=== PATIENT | female | born 1940 | race Caucasian/White ===

== ENCOUNTER 2019-11-09 10:22 | Emergency (ER) | payer MEDICARE, SELFPAY ==
[2019-11-09 10:28] VITALS: BP 167/88; PULSE 92; RESP 16; TEMP 36.4; O2SAT 98; BMI 18.8
--- NOTE | 2019-11-09 10:30 | W.ED.FALL ---
HPI - Fall General: Chief Complaint: Fall Stated Complaint: FALL WITH LEFT KNEE PAIN Time Seen by Provider: 11/09/19 10:30 Source: patient Mode of arrival: ambulatory Limitations: no limitations History of Present Illness: HPI Narrative: Patient comes in with injury sustained during a fall earlier this morning. Patient reports left knee pain. Patient does not recall what caused her to fall exactly. Patient appears well. Patient appears in moderate pain. Patient denies any difficulty breathing or chest pain. Patient is alert oriented and responds well to questioning. Review of Systems General: Reports: 10 or more systems reviewed and unremarkable except in HPI and below Musc: Reports: joint pain (left knee) PFS ED PFSH: Social History Smoking and tobacco status: never smoked Physical Exam Const: COMMON NORMALS: no apparent distress and oriented x3 GENERAL APPEARANCE: cooperative HENMT: COMMON NORMALS: normocephalic, external ears normal, EAC's normal, TM's normal bilaterally and external nose normal HEAD & SCALP: normal to inspection and normocephalic FACE & SINUS: facial ecchymosis (right facial cheek) NOSE: external nose normal GENERAL EAR: hearing not grossly impaired EXTERNAL EAR: Yes external ears normal EXTERNAL AUDITORY CANAL: EAC's normal TYMPANIC MEMBRANE: TM's normal bilaterally MOUTH: oral and palatal mucosa normal THROAT: posterior oropharynx normal Eye: COMMON NORMALS: PERRL and EOMs intact bilaterally PUPIL: Yes PERRL Neck/C-Spine: COMMON NORMALS: full ROM and no lymphadenopathy Lymph: LYMPHATIC: no lymphedema noted Chest: COMMONS NORMALS: inspection of chest normal and palpation of chest normal Resp: COMMON NORMALS: normal respiratory effort and clear to auscultation bilaterally AUSCULTATION: clear to auscultation bilaterally Cardio: COMMON NORMALS: regular rate and regular rhythm RATE: regular rate RHYTHM: regular rhythm GI: COMMON NORMALS: normal to inspection, nondistended, normoactive bowel sounds and non-tender : COMMON NORMALS: Yes no CVA tenderness BLADDER/KIDNEY EXAM: Yes no CVA tenderness Back/Pelvis: COMMON NORMALS: no CVA tenderness and thoracic and lumbar spine normal to inspection Extremity: GENERAL: No edema LEFT LOWER EXTREMITY: Yes knee joint Left knee: Yes palpation (painful) and Yes ROM (reduced due to pain) Neuro: COMMON NORMALS: oriented x3, moves all extremities and no focal motor deficits Psych: COMMON NORMALS: mental status grossly normal and cooperative Skin: COMMON NORMALS: no rashes or lesions noted GENERAL SKIN EXAM: no rashes or lesions noted Course ED course: 1140, reviewed with Dr. Coats, recommended orthostatic blood pressures in assessment of patient. wjw [id number], xrays noted no abnormality, pt blood pressure was not orthostatic, patient does have history of recurrent nausea and vomiting. Dr. Coats reviewed with labs and xrays with patient and family with statement of understanding. Vital Signs: Vital signs: Vital Signs Temperature 97.6 F 11/09/19 10:28 Pulse Rate 90 11/09/19 15:35 Respiratory Rate 18 11/09/19 15:35 Blood Pressure 171/77 11/09/19 15:35 Pulse Oximetry 96 11/09/19 15:35 MDM - Fall MDM Narrative: Medical decision making narrative: Patient was brought in today due to concerns of left knee pain. Patient had a reported fall during the late night early interventionist and cannot recall that incident clearly as to what happened except that she fell. 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 Exam notes abdomen soft with some pelvic tenderness. Respirations are even lungs are clear to auscultation. Pupils are equal and reactive. No focal neural deficits are noted. Patient has some mild ecchymosis to the right side of the face. Patient moves extremities well except for left lower extremity. Patient has tenderness to the anterior patellar area of the knee. Range of motion of the hip is noted without crepitus. Palpation of the vertebral spine elicits no pain. Lungs are clear to auscultation. Vital signs are normal except for some elevation in the blood pressure. Differential diagnosis includes CVA, intracranial bleeding, metastasis of cancer, fracture, dislocation, contusion, ACS, electrolyte abnormality, dehydration. Urinalysis had some casts in it, metabolic panel noted a mild decrease in sodium and potassium 135 and 3.4, blood cell count noted a 12 hemoglobin and a white blood cell count of 10.5. Troponin was normal. Lactic acid was mildly elevated at 2.3 but decreased to 1.5 at 2 hours after 1 L of IV fluids. CT scan of the head noted no bleeding. X-rays of the left knee, femur, tib-fib, and pelvis noted no fracture. CT scan of the chest, abdomen, pelvis, and lumbar spine noted a acute transverse fracture of the L1, significant foraminal stenosis, and changes noted to the tumors in the pelvis, but no other significant abnormalities was noted. Orthostatic blood pressures were negative. Patient did have improvement once she got up and moved around but continues to have significant left knee pain. Patient was given medication for pain with some improvement after getting up to a chair. Discussed with family need for patient not to be alone. It was offered for patient to be admitted but the patient refused at this time. Dr. Godinez was consulted and had seen the patient with me. Patient was agreeable to treatment with recommendations for follow-up, or return to ER Lab Data: Labs: Lab Results 11/09/19 11/09/19 11/09/19 Range/Units 11:37 11:37 11:48 WBC 10.5 H (4.0-10.0) 10^3/ uL RBC 4.10 (4.1-5.3) 10^6/u L Hgb 12.1 (11.5-15.3) g/dL Hct 36.1 L (37.0-47.0) % MCV 88.0 (81-99) fL MCH 29.5 (28.0-34.0) pg MCHC 33.5 (30.0-36.0) g/dL RDW 12.7 (12.1-15.1) % Plt Count 374 (130-400) 10^3/c mm MPV 9.5 (7.4-10.4) fL Neut % (Auto) 90.7 % Lymph % (Auto) 3.8 % Gillespie % (Auto) 4.8 % Eos % (Auto) 0.1 % Baso % (Auto) 0.2 % Neut # (Auto) 9.5 H (1.8-7.7) 10^3/u L Lymph # (Auto) 0.4 L (0.8-4.8) 10^3/u L Gillespie # (Auto) 0.5 (0.2-0.9) 10^3/u L Eos # (Auto) 0.0 (0.0-0.8) 10^3/u L Baso # (Auto) 0.0 (0.0-0.1) 10^3/u L Nucleated RBC % (a uto) 0 % Nucleated RBCs # 0.0 /100WBC Sodium (136-145) mmol/L Potassium (3.5-5.1) mmol/L Chloride (98-107) mmol/L Carbon Dioxide (22-29) mmol/L Anion Gap (5-19) BUN (8-23) mg/dL Creatinine (0.5-0.9) mg/dL Glucose (65-115) mg/dL Calculated Osmolal ity (285-295) mOsm/k g Lactic Acid 2.3 H (0.5-2.2) mmol/L Lactic Acid (Sepsi s) (0.5-2.2) mmol/L Calcium (8.5-10.5) mg/dL Magnesium (1.7-2.3) mg/dL Total Bilirubin (0.15-1.2) mg/dL AST (0-32) U/L ALT (0-33) U/L Alkaline Phosphata se (35-105) IU/L Troponin T Baselin e (0-10) ng/mL Total Protein (6.6-8.7) g/dL Albumin (3.5-5.2) g/dL Globulin (1.3-4.6) g/dL TSH (0.27-4.20) uIU/ mL Urine Color Yellow (Yellow) Urine Appearance Clear (CLEAR) Urine pH 7 (5-7) Ur Specific Gravit y 1.015 (1.005-1.030) Urine Protein Neg (Negative) Urine Glucose (UA) Norm (Normal) Urine Ketones Negative (Negative) Urine Blood 2+ H (Negative) Urine Nitrate Negative (Negative) Urine Bilirubin Neg (NEGATIVE) Urine Urobilinogen Norm (Negative) mg/dL Ur Leukocyte Kristina ase Negative (Negative) Urine RBC 5-10 H (0-2) /hpf Urine WBC None (0-5) /hpf Ur Squamous Epith Cells 0-4 H (0-5) Urine Bacteria Trace (NONE) Hyaline Casts 0-4 H Urine Mucus 2+ 11/09/19 11/09/19 11/09/19 Range/Units 12:40 12:40 14:35 WBC (4.0-10.0) 10^3/ uL RBC (4.1-5.3) 10^6/u L Hgb (11.5-15.3) g/dL Hct (37.0-47.0) % MCV (81-99) fL MCH (28.0-34.0) pg MCHC (30.0-36.0) g/dL RDW (12.1-15.1) % Plt Count (130-400) 10^3/c mm MPV (7.4-10.4) fL Neut % (Auto) % Lymph % (Auto) % Gillespie % (Auto) % Eos % (Auto) % Baso % (Auto) % Neut # (Auto) (1.8-7.7) 10^3/u L Lymph # (Auto) (0.8-4.8) 10^3/u L Gillespie # (Auto) (0.2-0.9) 10^3/u L Eos # (Auto) (0.0-0.8) 10^3/u L Baso # (Auto) (0.0-0.1) 10^3/u L Nucleated RBC % (a uto) % Nucleated RBCs # /100WBC Sodium 135 L (136-145) mmol/L Potassium 3.4 L (3.5-5.1) mmol/L Chloride 96 L (98-107) mmol/L Carbon Dioxide 24 (22-29) mmol/L Anion Gap 19.4 H (5-19) BUN 9 (8-23) mg/dL Creatinine 0.5 (0.5-0.9) mg/dL Glucose 119 H (65-115) mg/dL Calculated Osmolal ity 277 L (285-295) mOsm/k g Lactic Acid (0.5-2.2) mmol/L Lactic Acid (Sepsi s) 1.5 (0.5-2.2) mmol/L Calcium 10.3 (8.5-10.5) mg/dL Magnesium 2.1 (1.7-2.3) mg/dL Total Bilirubin 0.7 (0.15-1.2) mg/dL AST 26 (0-32) U/L ALT 16 (0-33) U/L Alkaline Phosphata se 114 H (35-105) IU/L Troponin T Baselin e 9 (0-10) ng/mL Total Protein 7.2 (6.6-8.7) g/dL Albumin 4.2 (3.5-5.2) g/dL Globulin 3.0 (1.3-4.6) g/dL TSH 2.91 (0.27-4.20) uIU/ mL Urine Color (Yellow) Urine Appearance (CLEAR) Urine pH (5-7) Ur Specific Gravit y (1.005-1.030) Urine Protein (Negative) Urine Glucose (UA) (Normal) Urine Ketones (Negative) Urine Blood (Negative) Urine Nitrate (Negative) Urine Bilirubin (NEGATIVE) Urine Urobilinogen (Negative) mg/dL Ur Leukocyte Kristina ase (Negative) Urine RBC (0-2) /hpf Urine WBC (0-5) /hpf Ur Squamous Epith Cells (0-5) Urine Bacteria (NONE) Hyaline Casts Urine Mucus EKG Data^: EKG 1: Attestation: I personally reviewed and interpreted this EKG as follows: (1048, SR rate 98 and regular, no ectopy, no ST elevation, artifact noted) EKG 2: Attestation: I personally reviewed and interpreted this EKG as follows: (1229, SR rate 89 regular, no ectopy, no ST elevation, no change from 2 hours ago.) Discharge Plan Discharge Patient Disposition: Home, Self-Care Clinical Impression: Dehydration, mild Closed fracture of transverse process of lumbar vertebra Qualifiers: Encounter type: initial encounter Qualified Code(s): S32.009A - Unspecified fracture of unspecified lumbar vertebra, initial encounter for closed fracture Injury of knee, left Qualifiers: Encounter type: initial encounter Qualified Code(s): S89.92XA - Unspecified injury of left lower leg, initial encounter Condition: Stable Prescriptions: New hydrocodone-acetaminophen 5-325 mg tablet 1 tab PO Q6H PRN (Reason: pain) Qty: 10 RF: 0 No Action quetiapine 25 mg tablet 25 mg PO BEDTIME RF: 0 alprazolam 0.5 mg tablet See Rx Instructions .ROUTE .COMPLEX RF: 0 Discharge Orders: Discharge Order (Routine); Ordered 11/09/19 Ordered By: Lele Cameron Referrals: Bartolo Cuevas DO [Primary Care Provider] - Discharge Diet: Usual diet Discharge Activity: Use walker/crutches as instructed Patient Instructions: Knee Pain (ED) Activity Restrictions/Additional Instructions: Acetaminophen and ibuprofen to control pain Use hydrocodone for breakthrough pain Increase activity as tolerated Patient should not be alone for the next three days Follow-up with primary care in three days Return to ER for worsening pain, or high fever Coding Level of Care Code ED Client Resolution Specialist for Keith Fwd Exam Comprehensive
[2019-11-09 10:36] VITALS: O2SAT 96
--- NOTE | 2019-11-09 10:36 | XR_ITS ---
WS: [id number] XR knee LT 3V* [id number] REASON FOR EXAM: fall, injury FINDINGS: Total knee replacement is identified the prosthesis hardware is in good alignment. There is no definite fractures of the bony structures of a seen. XR/XR knee LT 3V* [id number] IMPRESSION: Total knee replacement satisfactory alignment.
--- NOTE | 2019-11-09 10:36 | CTR_ITS ---
PROCEDURE INFORMATION: Exam: CT Head Without Contrast Exam date and time: 11/09/2019 10:40 AM Age: 79 years old Clinical indication: Injury or trauma; Fall TECHNIQUE: Imaging protocol: Computed tomography of the head without contrast. Total DLP: 1848.93 mGy-cm Radiation optimization: All CT scans at this facility use at least one of these dose optimization techniques: automated exposure control; mA and/or kV adjustment per patient size (includes targeted exams where dose is matched to clinical indication); or iterative reconstruction. COMPARISON: MR head wo con* [id number] 02/21/2017 11:54 AM FINDINGS: Brain: There is decreased attenuation in region of posterior limbs of internal capsules and lower valente and pontomedullary junction along course of cortical spinal tracts consistent with gliosis and could be due to motor neuron disease and present on prior MRI. There is no acute intracranial hemorrhage. There is lucency in the cerebral white matter, likely microvascular disease although non-specific. white differentiation is intact. There are no extra-axial fluid collections. No evidence of mass. There is no mass effect or midline shift. Ventricles: The ventricles and sulci are enlarged, consistent with volume loss / atrophy. No hydrocephalus. Bones/joints: No acute fracture. Sinuses: Minimal scattered mucosal thickening versus small retention cysts or polyps. Minimal secretions in a right posterior ethmoid air cell. Mastoid air cells: No significant mastoid effusion. Soft tissues: Unremarkable as visualized. Vasculature: There is vascular calcification. CT/CT head wo con* [id number] IMPRESSION: 1. No evidence of acute intracranial abnormality. No evidence of acute infarction, hemorrhage, or mass. 2. Atrophy and microvascular disease. Radiation Dose CTDIVOL = (mGy): DLP = 1848.93 (mGy-cm)
--- NOTE | 2019-11-09 10:36 | ECG_ITS ---
Measurements Intervals [place] Rate: 92 P: 72 RI: 172 QRS: 75 QRSD: 86 T: 64 QT: 389 QTc: 481 SINUS RHYTHM VOLTAGE CRITERIA FOR LVH [MEETS CRITERIA IN ONE OF: R(aVL), S(V1), R(V5), R(V5 (V5/V6)+S(V1)] MODERATE ST DEPRESSION [0.05+ mV ST DEPRESSION] Compared to ECG 10/05/2016 13:48:28 Left ventricular hypertrophy now present ST (T wave) deviation now present Electronically Signed On 11-09-2019 19:50:38 CDT by Faby Perkins M.D. [id number] f
--- NOTE | 2019-11-09 10:36 | XR_ITS ---
WS: [id number] XR pelvis 1-2V* [id number] REASON FOR EXAM: fall FINDINGS: The ilium, ischium, and pubis are normal. The sacroiliac joints are normal. Both hip joints show no definite fractures. XR/XR pelvis 1-2V* [id number] IMPRESSION: Negative pelvis.
[2019-11-09 11:44] LABS: Basophils % 0.2 %; Eosinophils % 0.1 %; Hematocrit 36.1 % (37.0-47.0); Hemoglobin 12.1 g/dL (11.5-15.3); Lymphocytes # 0.4 10^3/uL (0.8-4.8); Lymphocytes % 3.8 %; Mean Corpuscular HGB Conc 33.5 g/dL (30.0-36.0); Mean Corpuscular Hemoglobin 29.5 pg (28.0-34.0); Mean Platelet Volume 9.5 fL (7.4-10.4); Monocytes # 0.5 10^3/uL (0.2-0.9); Monocytes % 4.8 %; Neutrophils # 9.5 10^3/uL (1.8-7.7); Neutrophils % 90.7 %; Nucleated Red Blood Cells % 0 %; Platelet Count 374 10^3/cmm (130-400); Red Cell Distribution Width 12.7 % (12.1-15.1); White Blood Count 10.5 10^3/uL (4.0-10.0)
[2019-11-09 12:01] LABS: Lactic Sepsis W/Reflex 2.3 mmol/L (0.5-2.2)
--- NOTE | 2019-11-09 12:03 | CTR_ITS ---
PROCEDURE INFORMATION: Exam: CT Chest With Contrast Exam date and time: 11/09/2019 12:10 PM Age: 79 years old Clinical indication: Injury or trauma; Initial encounter; Generalized; Blunt trauma (contusions or hematomas); Prior surgery; Surgery date: 6+ months; Surgery type: Gb, appy, hyst; Patient HX: Backwards fall from standing - known abd mass; Additional info: Carcinoma, emesis TECHNIQUE: Imaging protocol: Computed tomography of the chest with intravenous contrast. Total DLP: 899.56 mGy-cm Radiation optimization: All CT scans at this facility use at least one of these dose optimization techniques: automated exposure control; mA and/or kV adjustment per patient size (includes targeted exams where dose is matched to clinical indication); or iterative reconstruction. Contrast material: Omnipaque 300; Contrast volume: 75 ml; Contrast route: IV; COMPARISON: CT abdomen pelvis w con* [id number] 01/29/2019 10:23 AM FINDINGS: Thyroid: The bilateral thyroid lobes are unremarkable. Lungs: Inferior segment lingular pulmonary subsegmental atelectasis. Pleural space: No pneumothorax identified. No pleural effusion demonstrated. Heart: Atherosclerotic coronary calcifications are noted involving the LAD and LCx coronary arteries. Mediastinum: No mediastinal hematoma identified. A small sliding hiatal hernia is present above the level of the diaphragm. Aorta: There is no evidence of aortic pseudoaneurysm or traumatic dissection. Mild aortic arch and descending thoracic aortic atherosclerotic calcification without ectasia. Lymph nodes: No enlarged lymph nodes. Bones/joints: No displaced rib fracture demonstrated. Healed posterolateral right 6th rib fracture. Healed left posterior 9th and 10th rib fractures. Thoracic spine vertebral body marginal osteophytes are noted at multiple levels. Healed anterolateral left 5th, 8th and 9th rib fractures. Diffuse osteopenia. Degenerative disk disease is present at mid-thoracic spine disk levels. Mild rightward upper thoracic spinal curvature. Soft tissues: Unremarkable. IMPRESSION: 1. Coronary atherosclerosis. 2. Small hiatal hernia. 3. No acute injury identified. 4. Please see the abdomen/pelvis CT report of the same date for additional findings. PROCEDURE INFORMATION: Exam: CT Abdomen And Pelvis With Contrast Exam date and time: 11/09/2019 12:10 PM Age: 79 years old Clinical indication: Injury or trauma; Initial encounter; Generalized; Blunt trauma (contusions or hematomas); Prior surgery; Surgery date: 6+ months; Surgery type: Gb, appy, hyst; Patient HX: Backwards fall from standing - known abd mass; Additional info: Carcinoma, emesis TECHNIQUE: Imaging protocol: Computed tomography of the abdomen and pelvis with intravenous contrast. Total DLP: 899.56 mGy-cm Radiation optimization: All CT scans at this facility use at least one of these dose optimization techniques: automated exposure control; mA and/or kV adjustment per patient size (includes targeted exams where dose is matched to clinical indication); or iterative reconstruction. Contrast material: Omnipaque 300; Contrast volume: 75 ml; Contrast route: IV; COMPARISON: CT abdomen pelvis w con* [id number] 01/29/2019 10:23 AM FINDINGS: Liver: Moderate central intrahepatic biliary ductal dilatation. Gallbladder and bile ducts: The gallbladder is surgically absent, with metallic clips in the gallbladder fossa. The extrahepatic bile ducts are dilated, measuring 11 mm. No ductal calculus. Pancreas: The pancreas is normal. No pancreatic mass or ductal dilatation identified. Spleen: The spleen demonstrates a few small granulomatous calcifications. Adrenals: Normal. No mass. Kidneys and ureters: Normal. No hydronephrosis. Stomach and bowel: Unremarkable. No obstruction. No mucosal thickening. Appendix: No evidence of appendicitis. Intraperitoneal space: Unremarkable. No free air. No significant fluid collection. Vasculature: Moderate aortic atherosclerotic calcification without aneurysm. The iliac arteries show moderate bilateral atherosclerotic calcifications without evidence of aneurysm. Lymph nodes: No enlarged lymph nodes. Bladder: Unremarkable as visualized. Reproductive: The uterus is status post hysterectomy. Centrally necrotic solid right adnexal mass measuring 13.6 x 10.2 x 10.3 cm. Solid bilobed left adnexal mass contiguous with (versus continuous with) this measuring 6.1 x 6.5 x 6.8 cm. Likely separate prominent left ovary measuring 3.6 x 2.9 x 3.0 cm, containing a crenulated 2.1 cm cystic space. Bones/joints: Diffuse osteopenia. No pelvic or sacral fracture identified. No acute lumbar spine fracture identified. Bilateral lower lumbar facet primary osteoarthritis. L4-L5 degenerative disc disease. Grade 1 L4-5 degenerative type anterolisthesis. Soft tissues: Unremarkable. CT/CT chest abd pel w con* IMPRESSION: 1. Prior hysterectomy. 2. Bilateral adnexal masses. Neoplasia not excluded. 3. Post cholecystectomy with extrahepatic biliary ductal dilatation. No ductal calculus identified. 4. No acute injury identified. 5. Please see the CT chest report of the same date for additional findings. Radiation Dose CTDIVOL = (mGy): DLP = 899.56~899.56 (mGy-cm)
[2019-11-09 12:18] LABS: Add Urine Microscopic? YES; Bilirubin Urine Neg (NEGATIVE); Blood Urine 2+ (Negative); Glucose Urine UA Norm (Normal); Ketones Urine Negative (Negative); Leukocyte Esterase Urine Negative (Negative); Nitrate Urine Negative (Negative); Protein Urine Neg (Negative); Specific Gravity, Urine 1.015 (1.005-1.030); Urine Appearance Clear (CLEAR); Urine Color Yellow (Yellow); Urobilinogen Urine Norm (Negative); pH Urine 7 (5-7)
[2019-11-09 12:27] LABS: Add Urine Culture? No; Bacteria Urine TRACE; Hyaline Casts Urine 0-4; Mucus Urine 2+; Squamous Epithelial Cell Urine 0-4 (0-5)
--- NOTE | 2019-11-09 12:36 | ECG_ITS ---
Measurements Intervals [place] Rate: 89 P: 95 OH: 161 QRS: 85 QRSD: 83 T: 85 QT: 399 QTc: 487 SINUS RHYTHM VOLTAGE CRITERIA FOR LVH [MEETS CRITERIA IN ONE OF: R(aVL), S(V1), R(V5), R(V (V5/V6)+S(V1)] Compared to ECG 10/05/2016 13:48:28 Left ventricular hypertrophy now present Electronically Signed On 11-09-2019 19:51:52 CDT by Faby Perkins M.D. [id number] f
[2019-11-09] MEDS: ondansetron 2 mg/ML SDV 2 mL 4 MG IVP (12:40)
[2019-11-09] MEDS: morphine 4 mg/mL SDV 1 mL 2 MG IVP ×2 (12:41→14:46)
[2019-11-09] MEDS: sodium chloride 0.9% 1,000 ML 999 ML IV (12:41)
[2019-11-09] MEDS: sodium chloride 0.9% 500 ML 999 ML IV (12:41)
--- NOTE | 2019-11-09 12:41 | XR_ITS ---
WS: [id number] XR tibia fibula LT 2V [id number] REASON FOR EXAM: pain, fall FINDINGS: Tibia fibula shafts were normal with no fractures. Total knee replacement is seen in satisf actory position. At the ankle there is mild widening of the ankle mortise suggesting instability. XR/XR tibia fibula LT 2V [id number] IMPRESSION: Total knee replacement satisfactory a knee The tibia and fibula show no definite fractures widening ankle mortise suggesti ng grade 2 sprain.
--- NOTE | 2019-11-09 12:41 | USR_ITS ---
PROCEDURE INFORMATION: Exam: US Duplex Left Lower Extremity Veins, Limited Exam date and time: 11/09/2019 1:49 PM Age: 79 years old Clinical indication: Pain; Leg, lower; Left; Additional info: Leg pain, swelling, cancer TECHNIQUE: Imaging protocol: Real-time Duplex ultrasound of the Left Lower Extremity with 2-D temple scale, color Doppler flow and spectral waveform analysis with image documentation. Limited exam focused on the left lower extremity veins. COMPARISON: No relevant prior studies available. FINDINGS: Left deep veins: Unremarkable. The common femoral, femoral, proximal profunda femoral and popliteal veins are patent without thrombus. Normal Doppler waveforms. Normal compressibility and/or augmentation response. Left superficial veins: Unremarkable. Saphenofemoral junction is patent without thrombus. Soft tissues: Unremarkable. US/CV venous duplex [facility] [id number] IMPRESSION: No acute findings. No evidence of deep vein thrombosis.
--- NOTE | 2019-11-09 12:41 | XR_ITS ---
WS: [id number] XR femur LT min 2V* [id number] REASON FOR EXAM: fall FINDINGS: The femur distally shows a prosthesis from total knee replacement. No fractures are noted t hroughout the femoral shaft. Line normal alignment. XR/XR femur LT min 2V* [id number] IMPRESSION: Total knee replacement satisfactory. Femurs negative.
[2019-11-09 13:11] LABS: Troponin(5th) Baseline 9 ng/mL (0-10)
[2019-11-09 13:27] LABS: Reflex Lactate Order REFLEX LACTIC ORDERD
[2019-11-09 13:42] LABS: Alanine Aminotransferase 16 U/L (0-33); Aspartate Amino Transferase 26 U/L (0-32); Blood Urea Nitrogen 9 mg/dL (8-23); Calcium 10.3 mg/dL (8.5-10.5); Carbon Dioxide 24 mmol/L (22-29); Creatinine Clr Calc Pharmacy 46.7305; Glucose 119 mg/dL (65-115); Magnesium 2.1 mg/dL (1.7-2.3); Thyroid Stimulating Hormone 2.91 uIU/mL (0.27-4.20); Total Bilirubin 0.7 mg/dL (0.15-1.2); Total Protein 7.2 g/dL (6.6-8.7)
--- NOTE | 2019-11-09 13:44 | CTR_ITS ---
PROCEDURE INFORMATION: Exam: CT Lumbar Spine Without Contrast Exam date and time: 11/09/2019 1:49 PM Age: 79 years old Clinical indication: Injury or trauma; Initial encounter; Blunt trauma (contusions or hematomas); Prior surgery; Surgery date: 6+ months; Surgery type: Gb, appy, hyst; Patient HX: Backwards fall from standing; Additional info: Fall, pain TECHNIQUE: Imaging protocol: Computed tomography images of the lumbar spine without contrast. Total DLP: 984.04 mGy-cm Radiation optimization: All CT scans at this facility use at least one of these dose optimization techniques: automated exposure control; mA and/or kV adjustment per patient size (includes targeted exams where dose is matched to clinical indication); or iterative reconstruction. COMPARISON: CT abdomen pelvis w con* [id number] 01/29/2019 10:23:52 AM FINDINGS: Vertebrae: There is acute nondisplaced right L1 transverse process fracture. There are more focal rounded lucencies in T12 and L1 which are stable and likely hemangiomas. Discs/Spinal canal/Neural foramina: There are degenerative changes with lumbar disc bulging, thickening of ligamentum flavum, and facet degenerative changes. There is stable grade 1/2 degenerative anterior listhesis at L4-L5. This causes asymmetric prominent right neural foraminal narrowing. There is [id number] spinal stenosis at L5-S1. There is severe spinal stenosis and subarticular recesses narrowing at L4-L5. There is mild spinal stenosis at L2-L3 and L3-L4. Degenerative changes are not significantly changed. Other bones/joints: Bones are diffusely demineralized. Intraperitoneal space: There is large partially visualized pelvic mass and please see report of abdominal CT. There are surgical clips in the right side of the pelvis. Vasculature: Aorta shows atherosclerotic change. Soft tissues: See above. CT/CT lumbar spine wo con* [id number] IMPRESSION: 1. Acute nondisplaced right L1 transverse process fracture. 2. Stable degenerative changes greatest at L4-L5 with severe right neural foraminal narrowing, severe spinal stenosis, and grade 1/2 degenerative anterior listhesis. Radiation Dose CTDIVOL = (mGy): DLP = 984.04 (mGy-cm)
[2019-11-09] MEDS: iohexol 300 mg/mL 100 mL Btl IV (13:59)
[2019-11-09 14:11] LABS: Albumin Level 4.2 g/dL (3.5-5.2); Alkaline Phosphatase 114 IU/L (35-105); Anion Gap 19.4 (5-19); Chloride 96 mmol/L (98-107); Osmolality Calculated 277 mOsm/kg (285-295); Potassium 3.4 mmol/L (3.5-5.1); Sodium 135 mmol/L (136-145)
[2019-11-09 14:46] VITALS: RESP 16; O2SAT 94
[2019-11-09] MEDS: ketorolac 30 mg/mL INJ 15 MG IVP (14:46)
[2019-11-09 14:51] LABS: Lactic Acid level (Lactate) 1.5 mmol/L (0.5-2.2)
[2019-11-09 15:35] VITALS: BP 167/86; BP 171/77; BP 171/80; PULSE 90; RESP 18; O2SAT 96
[2019-11-09 16:47] VITALS: BP 123/86; PULSE 84; RESP 17; O2SAT 98
== END 2019-11-09 16:48 | disposition home or self-care (01) ==
PROVIDERS: Emergency Provider Nurse Practitioner Family; Family Provider Internal Medicine; PCP Internal Medicine
DX: S32.019A Unspecified fracture of first lumbar vertebra, initial encounter for closed fracture (principal); S89.92XA Unspecified injury of left lower leg, initial encounter; W19.XXXA Unspecified fall, initial encounter; M79.89 Other specified soft tissue disorders
CPT/HCPCS: 12345; 36415; 70450; 71260; 72131; 72170; 73552; 73562; 73590; 74177; 80053; 81001; 83605; 83735; 84443; 84484; 85025; 93005; 93971; 96361; 96374; 96375; 96376; 99284; J1885; J2270; J2405; J7030; J7040; Q9967

== ENCOUNTER 2020-09-08 13:53 | Emergency (ER) | payer MEDICARE, SELFPAY ==
[2020-09-08] VITALS (9 sets, daily range): BP systolic 141–194; BP diastolic 77–99; PULSE 77–99; RESP 16–18; TEMP 36.9; O2SAT 92–100; BMI 16.2
--- NOTE | 2020-09-08 15:22 | CTR_ITS ---
PROCEDURE INFORMATION: Exam: CT Abdomen And Pelvis With Contrast Exam date and time: 09/08/2020 4:09 PM Age: 80 years old Clinical indication: Nausea and vomiting; Abdominal pain; Prior surgery; Surgery type: Hyst, tumor removal; Additional info: Abd tumor and vomiting. Obstruction? TECHNIQUE: Imaging protocol: Computed tomography of the abdomen and pelvis with intravenous contrast. Radiation optimization: All CT scans at this facility use at least one of these dose optimization techniques: automated exposure control; mA and/or kV adjustment per patient size (includes targeted exams where dose is matched to clinical indication); or iterative reconstruction. Contrast material: OMNI 300; Contrast volume: 75 ml; Contrast route: INTRAVENOUS (IV); COMPARISON: 1. CT chest abd pel w con* 11/09/2019 2:[address] abdomen pelvis w con* [id number] 01/29/2019 10:23:[address] abdomen pelvis w con* [id number] 05/23/2018 2:07:[address] abdomen pelvis w con* [id number] 11/06/2018 12:37:31 PM RADIATION DOSE METRICS: Total DLP (mGy-cm): 184.68 FINDINGS: Liver: There is no focal abnormality within the liver. Gallbladder and bile ducts: There has been a cholecystectomy. Dilatation the central bile ducts within the liver in the common bile duct is not significantly changed from prior examinations and is not unusual in a patient post cholecystectomy. Pancreas: The pancreas is normal. Spleen: The spleen demonstrates punctate calcifications, consistent with remote granulomatous organism exposure. Adrenal glands: The adrenal glands are normal. Kidneys and ureters: There is moderate hydronephrosis. There is moderate hydroureter. Stomach and bowel: There is mild dilatation of proximal small bowel loops. Distal small bowel appears less dilated and contains less contrast however the bowel in general is difficult to evaluate on this examination due to the very large masses which displaced bowel loops from the pelvis. There is midline ventral hernia containing a loop of bowel. This potentially represents point of obstruction it appears represent a transition point between dilated and nondilated bowel. Correlation with physical examination findings is suggested. There is a large amount of feces throughout the colon which may represent constipation or fecal impaction. Appendix: Not identified Not identified Intraperitoneal space: There are 3 large abdominal and pelvic masses, larger than on previous examinations. The largest on the right side of the abdomen measures approximately 11 x 13 x 14 cm and is centrally necrotic. To the left of this there is a 9 x 9 by 10.5 cm mass with decreased enhancement centrally suggesting central necrosis and on the left side is a centrally necrotic 6 cm diameter mass. Vasculature: Unremarkable. No abdominal aortic aneurysm. Lymph nodes: Unremarkable. No enlarged lymph nodes. Urinary bladder: Unremarkable as visualized. Reproductive: There has been a hysterectomy. Bones/joints: Unremarkable. No acute fracture. Soft tissues: Unremarkable. CT/CT abdomen pelvis w con* [id number] IMPRESSION: 1. Possible small bowel obstruction. 2. Ventral hernia containing a loop of bowel. This is worrisome as the cause for small bowel obstruction. 3. There is been considerable growth in the abdominal tumor masses compared with 11/07/2019. 4. Findings suggesting constipation. Radiation Dose CTDIVOL = (mGy): DLP = 184.68 (mGy-cm)
--- NOTE | 2020-09-08 15:25 | W.ED.NAVMDI ---
HPI - Nausea/Vomiting/Diarrhea General: Chief complaint: Nausea/Vomiting/Diarrhea Stated complaint: Vomiting for 2 days, abdominal pains,unable to eat Time Seen by Provider: 09/08/20 15:12 History of Present Illness: HPI Narrative: The patient is an 80-year-old female with a past medical history of gastrointestinal stromal tumor / GIST. She comes to the ER today complaining of nausea and vomiting for the past 2 to 3 days. She has been unable to eat or drink anything during that time her daughter says she will swallow it and then it will come back up. Patient reports she did pass a small bowel movement this morning but has not passed any gas. The patient does have dementia and the daughter offers most of her history. Denies diarrhea. Has visible abdomen mass. A few years ago the GIST tumor has been treated with Gleevec and the tumor shrank however it is clearly back now and visible. They were told she may not be suitable for this anymore due to her chronic memory loss and dementia. MD elicited complaint: nausea and vomiting Description of vomiting: food contents Associated nausea: Yes Associated abdominal pain: No Pain consistency: colicky Quality: cramping Exacerbating factors: eating and vomiting Relieving factors: none Associated symtoms: Reports no associated symptoms and nausea; Denies anxiety, change in vision, chest pain, dizziness, fatigue, headache(s) or palpitations Review of Systems General: Reports: 10 or more systems reviewed and unremarkable except in HPI and below Const: Denies: fatigue Eyes: Denies: change in vision, blurry vision or eye redness ENMT: Denies: throat pain, swelling of lips/tongue, ear or mastoid pain or nasal congestion Card: Denies: chest pain, palpitations, irregular heart rhythm, edema, dyspnea on exertion or orthopnea Resp: Denies: dyspnea, productive cough or non-productive cough GI: Reports: nausea and vomiting; Denies: abdominal pain : Denies: flank pain, difficulty voiding, urinary frequency or urinary urgency Musc: Denies: neck pain, back pain, extremity pain, joint pain, joint redness, limited range of motion or muscle weakness Skin/Breast: Denies: rash, pruritus, erythema, skin pain or skin tenderness Neuro: Denies: headache(s), numbness in extremities, weakness in extremities, sensory changes, difficulty walking, dizziness, confusion or Slurred speech present Psych: Denies: anxiety or depression Endo: Denies: polyuria All/Imm: Denies: urticaria, throat swelling or tongue swelling PFSH ED PFSH: Social History Smoking and tobacco status: never smoked Physical Exam Const: COMMON NORMALS: no acute distress, average body habitus, patient oriented x3, no limitations, healthy appearing, alert and well nourished GENERAL APPEARANCE: cooperative, comfortable, well kempt and well developed ORIENTATION/CONSCIOUSNESS: Yes awake, Yes oriented to person, Yes oriented to place and Yes oriented to time HENMT: COMMON NORMALS: normocephalic, external ears normal and Normal external nose present HEAD & SCALP: normal to inspection and normocephalic NOSE: Normal external nose present EXTERNAL EAR: Yes external ears normal MOUTH: Normal oral and palatal mucosa present THROAT: posterior oropharynx normal Eye: COMMON NORMALS: Equal, round and reactive pupils present and EOMs intact bilaterally GENERAL EYE: appearance normal, both eyes and all related structures PUPIL: Yes Equal, round and reactive pupils present Neck/C-Spine: COMMON NORMALS: full ROM, no lymphadenopathy, no meningeal signs and no JVD GENERAL: Yes normal visual inspection Lymph: LYMPHATIC: no lymphadenopathy noted Chest: COMMONS NORMALS: normal inspection of the chest and normal palpation of entire chest wall Resp: COMMON NORMALS: normal respiratory effort, No retractions, No use of accessory muscles, clear to auscultation bilaterally and percussion normal EFFORT & INSPECTION: Yes able to speak in complete sentences AUSCULTATION: clear to auscultation bilaterally PERCUSSION: percussion normal Cardio: COMMON NORMALS: no JVD, regular rate, regular rhythm, S1 normal heart sound present, S2 normal heart sound present and Peripheral pulses 2+ throughout RATE: regular rate RHYTHM: regular rhythm HEART SOUNDS: S1 normal heart sound present and S2 normal heart sound present PERIPHERAL PULSES: Peripheral pulses 2+ throughout GI: INSPECTION: Yes abdominal distension and Yes other (Obvious tumor visible to Right lower abdomen. Firm to palpation. Not tender) AUSCULTATION: Yes normoactive bowel sounds PALPATION: Yes Firmness to palpation present (GI) GI image (female): 1. tumor present : COMMON NORMALS: Yes no CVA tenderness BLADDER/KIDNEY EXAM: Yes no CVA tenderness Back/Pelvis: COMMON NORMALS: no CVA tenderness, thoracic and lumbar spine normal to inspection, no thoracic nor lumbar tenderness and thoraco-lumbar ROM normal Extremity: COMMON NORMALS: normal to inspection, full ROM, capillary refill normal, no joint enlargement and no pedal edema GENERAL: Yes normal exam except as noted Neuro: COMMON NORMALS: patient oriented x3, CN's II-XII intact bilaterally, moves all extremities, no focal motor deficits, no sensory deficits noted and gait normal SENSORIUM/ORIENTATION: Yes alert, Yes oriented to person, Yes oriented to place and Yes oriented to time MENINGEAL SIGNS: Yes no meningeal signs Psych: COMMON NORMALS: mental status grossly normal, Normal thought process present, cooperative, normal affect and speech normal APPEARANCE: Yes well kempt ATTITUDE: Yes calm SPEECH: Yes normal speech THOUGHT PROCESS: Normal thought process present Skin: COMMON NORMALS: no rashes or lesions noted GENERAL SKIN EXAM: no rashes or lesions noted Course Vital Signs: Vital signs: Vital Signs Temperature 98.4 F 09/08/20 14:06 Pulse Rate 82 09/08/20 23:01 Respiratory Rate 18 09/08/20 18:00 Blood Pressure 191/77 09/08/20 23:01 Pulse Oximetry 95 09/08/20 23:01 MDM - Nausea/Vomiting/Diarrhea MDM Narrative: Medical decision making narrative: The patient came with nausea and vomiting for the past 2 days and inability to tolerate oral fluids without vomiting them. CT showed multiple masses in her belly that have greatly grown since last year. It also showed a ventral hernia. I reduced this myself with ease after it was found on CT and is unlikely the cause of her constipation. CT did not commit but said most likely it is a small bowel obstruction. The likely cause of this is probably the mass-effect from the 3 large masses in her abdomen. I initially admitted her to this hospital however Dr. Villatoro took a look at the CT and recommended a larger facility with surgical oncology as she possibly needs debulking. Discussed with the patient and recommended transfer. [facility] who does not have a debulking surgeon. [facility] Dr. Strickland is a hospitalist who accepts her care. The patient is stable for transfer. Lab Data: Labs: Lab Results 09/08/20 09/08/20 09/08/20 Range/Units 15:55 15:55 17:40 WBC 8.7 (4.0-10.0) 10^3/ uL RBC 4.31 (4.1-5.3) 10^6/u L Hgb 13.1 (11.5-15.3) g/dL Hct 39.7 (37.0-47.0) % MCV 92.1 (81-99) fL MCH 30.4 (28.0-34.0) pg MCHC 33.0 (30.0-36.0) g/dL RDW 13.2 (12.1-15.1) % Plt Count 342 (130-400) 10^3/c mm MPV 8.8 (7.4-10.4) fL Neut % (Auto) 81.2 % Lymph % (Auto) 8.8 % [place] % (Auto) 9.4 % Eos % (Auto) 0.0 % Baso % (Auto) 0.3 % Neut # (Auto) 7.08 (1.8-7.7) 10^3/u L Lymph # (Auto) 0.8 (0.8-4.8) 10^3/u L [place] # (Auto) 0.8 (0.2-0.9) 10^3/u L Eos # (Auto) 0.0 (0.0-0.8) 10^3/u L Baso # (Auto) 0.0 (0.0-0.1) 10^3/u L Nucleated RBC % (a uto) 0 % Nucleated RBCs # 0.0 /100WBC Sodium 135 L (136-145) mmol/L Potassium 3.9 (3.5-5.1) mmol/L Chloride 95 L (98-107) mmol/L Carbon Dioxide 29 (22-29) mmol/L Anion Gap 14.9 (5-19) BUN 8 (8-23) mg/dL Creatinine 0.4 L (0.5-0.9) mg/dL GFR Calculation Not Reportable Glucose 107 (65-115) mg/dL Calculated Osmolal ity 279 L (285-295) mOsm/k g Lactate (0.5-2.2) mmol/L Calcium 10.1 (8.5-10.5) mg/dL Total Bilirubin 0.5 (0.15-1.2) mg/dL AST 22 (0-32) U/L ALT 16 (0-33) U/L Alkaline Phosphata se 127 H (35-105) IU/L Total Protein 7.2 (6.6-8.7) g/dL Albumin 4.2 (3.5-5.2) g/dL Globulin 3.0 (1.3-4.6) g/dL Lipase 23 (13-60) U/L Urine Color Yellow (Yellow) Urine Appearance Hazy A (CLEAR) Urine pH 7 (5-7) Ur Specific Gravit y 1.005 (1.005-1.030) Urine Protein Neg (Negative) Urine Glucose (UA) Norm (Normal) Urine Ketones Negative (Negative) Urine Blood 2+ H (Negative) Urine Nitrate Negative (Negative) Urine Bilirubin Neg (Negative) Urine Urobilinogen Norm (Negative) mg/dL Ur Leukocyte Kristina ase Negative (Negative) Urine RBC 15-25 H (0-2) /hpf Urine WBC None (0-5) /hpf Ur Squamous Epith Cells 5-10 H (0-5) /hpf Amorphous Sediment Not Reportable Urine Bacteria 1+ H (NONE) /hpf SARS-CoV-2 Ag (Rap id) (Negative) 09/08/20 09/08/20 Range/Units 19:46 22:55 WBC (4.0-10.0) 10^3/ uL RBC (4.1-5.3) 10^6/u L Hgb (11.5-15.3) g/dL Hct (37.0-47.0) % MCV (81-99) fL MCH (28.0-34.0) pg MCHC (30.0-36.0) g/dL RDW (12.1-15.1) % Plt Count (130-400) 10^3/c mm MPV (7.4-10.4) fL Neut % (Auto) % Lymph % (Auto) % [place] % (Auto) % Eos % (Auto) % Baso % (Auto) % Neut # (Auto) (1.8-7.7) 10^3/u L Lymph # (Auto) (0.8-4.8) 10^3/u L [place] # (Auto) (0.2-0.9) 10^3/u L Eos # (Auto) (0.0-0.8) 10^3/u L Baso # (Auto) (0.0-0.1) 10^3/u L Nucleated RBC % (a uto) % Nucleated RBCs # /100WBC Sodium (136-145) mmol/L Potassium (3.5-5.1) mmol/L Chloride (98-107) mmol/L Carbon Dioxide (22-29) mmol/L Anion Gap (5-19) BUN (8-23) mg/dL Creatinine (0.5-0.9) mg/dL GFR Calculation Glucose (65-115) mg/dL Calculated Osmolal ity (285-295) mOsm/k g Lactate 1.5 (0.5-2.2) mmol/L Calcium (8.5-10.5) mg/dL Total Bilirubin (0.15-1.2) mg/dL AST (0-32) U/L ALT (0-33) U/L Alkaline Phosphata se (35-105) IU/L Total Protein (6.6-8.7) g/dL Albumin (3.5-5.2) g/dL Globulin (1.3-4.6) g/dL Lipase (13-60) U/L Urine Color (Yellow) Urine Appearance (CLEAR) Urine pH (5-7) Ur Specific Gravit y (1.005-1.030) Urine Protein (Negative) Urine Glucose (UA) (Normal) Urine Ketones (Negative) Urine Blood (Negative) Urine Nitrate (Negative) Urine Bilirubin (Negative) Urine Urobilinogen (Negative) mg/dL Ur Leukocyte Kristina ase (Negative) Urine RBC (0-2) /hpf Urine WBC (0-5) /hpf Ur Squamous Epith Cells (0-5) /hpf Amorphous Sediment Urine Bacteria (NONE) /hpf SARS-CoV-2 Ag (Rap id) Negative (Negative) Discharge Plan Discharge Patient Disposition: Xfer Other Clinical Impression: Complete small bowel obstruction, Gastrointestinal stromal neoplasm, Neoplasm causing mass effect on adjacent structures Condition: Stable Referrals: Bartolo Cuevas DO [Primary Care Provider] - Coding Level of Care Code ED Bell Attendant for Chg Fwd Exam Comprehensive
[2020-09-08 16:03] LABS: Basophils % 0.3 %; Hematocrit 39.7 % (37.0-47.0); Hemoglobin 13.1 g/dL (11.5-15.3); Lymphocytes # 0.8 10^3/uL (0.8-4.8); Lymphocytes % 8.8 %; Mean Corpuscular Hemoglobin 30.4 pg (28.0-34.0); Mean Corpuscular Volume 92.1 fL (81-99); Mean Platelet Volume 8.8 fL (7.4-10.4); Monocytes # 0.8 10^3/uL (0.2-0.9); Monocytes % 9.4 %; Neutrophils # 7.08 10^3/uL (1.8-7.7); Neutrophils % 81.2 %; Nucleated Red Blood Cells % 0 %; Platelet Count 342 10^3/cmm (130-400); Red Blood Count 4.31 10^6/uL (4.1-5.3); Red Cell Distribution Width 13.2 % (12.1-15.1); White Blood Count 8.7 10^3/uL (4.0-10.0)
[2020-09-08] MEDS: sodium chloride 0.9% 1,000 ML 999 ML IV (16:05)
[2020-09-08] MEDS: ondansetron 2 mg/ML SDV 2 mL 4 MG IVP (16:05)
[2020-09-08 16:33] LABS: Alanine Aminotransferase 16 U/L (0-33); Albumin Level 4.2 g/dL (3.5-5.2); Alkaline Phosphatase 127 IU/L (35-105); Anion Gap 14.9 (5-19); Aspartate Amino Transferase 22 U/L (0-32); Blood Urea Nitrogen 8 mg/dL (8-23); Calcium 10.1 mg/dL (8.5-10.5); Carbon Dioxide 29 mmol/L (22-29); Chloride 95 mmol/L (98-107); Glucose 107 mg/dL (65-115); Lipase 23 U/L (13-60); Osmolality Calculated 279 mOsm/kg (285-295); Potassium 3.9 mmol/L (3.5-5.1); Sodium 135 mmol/L (136-145); Total Bilirubin 0.5 mg/dL (0.15-1.2); Total Protein 7.2 g/dL (6.6-8.7)
[2020-09-08 16:34] LABS: Creatinine Clr Calc Pharmacy 37.5176
[2020-09-08] MEDS: iohexol 300 mg/mL 50 mL Btl PO (17:07)
[2020-09-08] MEDS: iohexol 300 mg/mL 100 mL Btl IV (17:07)
[2020-09-08 17:56] LABS: Add Urine Microscopic? YES; Bilirubin Urine Neg (Negative); Blood Urine 2+ (Negative); Glucose Urine UA Norm (Normal); Ketones Urine Negative (Negative); Leukocyte Esterase Urine Negative (Negative); Nitrate Urine Negative (Negative); Protein Urine Neg (Negative); Specific Gravity, Urine 1.005 (1.005-1.030); Urine Appearance Hazy (CLEAR); Urine Color Yellow (Yellow); Urobilinogen Urine Norm (Negative); pH Urine 7 (5-7)
[2020-09-08 18:22] LABS: RBC Urine 15-25 /hpf (0-2)
[2020-09-08 18:23] LABS: Add Urine Culture? Yes; Bacteria Urine 1+ /hpf
[2020-09-08] MEDS: promethazine 25 mg/mL SDV 1 mL IM (18:54)
[2020-09-08] MEDS: famotidine 20 mg/2 mL INJ IVP (18:54)
[2020-09-08] MEDS: LORazepam 2 mg/mL INJ 1 mL 0.5 MG IVP (19:36)
--- NOTE | 2020-09-08 20:20 | XRR_ITS ---
PROCEDURE INFORMATION: Exam: XR Chest, 1 View Exam date and time: 09/08/2020 8:25 PM Age: 80 years old Clinical indication: Device placement; Ng tube TECHNIQUE: Imaging protocol: XR of the chest Views: 1 view. COMPARISON: CT chest abd pel w con* 11/09/2019 2:10 PM FINDINGS: Tubes, catheters and devices: Nasogastric tube tip is in the stomach. Lungs: No focal infiltrate is identified. Pleural space: Unremarkable. No pleural effusion. No pneumothorax. Heart/Mediastinum: Heart is within normal limits of size. Bones/joints: Unremarkable. XR/XR chest 1V [id number] IMPRESSION: No acute infiltrates.
[2020-09-08 20:46] LABS: Lactate (Lactic Acid level) 1.5 mmol/L (0.5-2.2)
--- NOTE | 2020-09-08 21:24 | PC.NURSE ---
NG placed xray obtained. pt removed NG tube. notified.
[2020-09-08] MEDS: LORazepam 0.5 mg Tablet PO (22:09)
[2020-09-08 23:29] LABS: SARS Covid-2 Antigen Negative (Negative)
[2020-09-09 00:08] VITALS: BP 180/92; PULSE 86; O2SAT 92
[2020-09-09 01:37] VITALS: BP 190/88; PULSE 93; O2SAT 93
[2020-09-09 03:03] VITALS: BP 152/97; PULSE 101; RESP 16; O2SAT 93
[2020-09-09 03:04] VITALS: BP 152/97; PULSE 101; RESP 16; O2SAT 93
--- NOTE | 2020-09-09 03:17 | PC.NURSE ---
IV started prior to transfer. pt transferred to [facility]. Lupe pt daughter notified.
== END 2020-09-09 03:10 | disposition other institution (70) ==
PROVIDERS: Physician Assistant; Emergency Provider Family Medicine; PCP Internal Medicine
DX: C49.A0 Gastrointestinal stromal tumor, unspecified site (principal); K56.601 Complete intestinal obstruction, unspecified as to cause
CPT/HCPCS: 12345; 36415; 71045; 74177; 80053; 81001; 83605; 83690; 85025; 87426; 96361; 96372; 96374; 96375; 99284; 99291; J2060; J2405; J2550; J3490; J7030; Q9967